=== PATIENT | male | born 1985 | race Two or more races ===

== ENCOUNTER 2022-09-14 14:48 | Emergency (ER) | payer MEDICAID, OTHER ==
[~2022-09-14] VITALS: Ht 175.3 cm; Wt 99.7 kg
[2022-09-14 15:23] VITALS: BP 146/72
[2022-09-14] MEDS ORDERED: HYDR-4798 PO (16:22)
[2022-09-14] MEDS ORDERED: HYDROcodone-ACET 10/325MG TAB PO ONE (16:30)
== END 2022-09-14 17:07 | disposition home or self-care (01) ==
LOC: ER 14:48
DX: R07.81 Pleurodynia (principal); V89.2XXA Person injured in unspecified motor-vehicle accident, traffic, initial encounter; Y93.89 Activity, other specified; Y92.89 Other specified places as the place of occurrence of the external cause; Y99.8 Other external cause status
CPT/HCPCS: 71045; 71101